=== PATIENT | male | born 1970 | race Caucasian/White ===

== ENCOUNTER 2021-02-02 10:07 | Day surgery (SDC) | payer BC ==
--- NOTE | 2021-02-02 09:39 | P.GSHP ---
History of Present Illness H&P Date: 02/02/21 CHIEF COMPLAINT: Colon screen HISTORY OF PRESENT ILLNESS: The patient is a 50-year-old male who presents for colon screen. Lower endoscopy was offered for further evaluation and management. PAST MEDICAL HISTORY: Please see list. PAST SURGICAL HISTORY: Please see list. MEDICATIONS: Please see list. ALLERGIES: Please see list. SOCIAL HISTORY: No illicit drug use FAMILY HISTORY: No reports of Crohn disease or ulcerative colitis. REVIEW OF ORGAN SYSTEMS: CONSTITUTIONAL: No reports of fevers or chills. PHYSICAL EXAM: VITAL SIGNS: Stable GENERAL: Well-developed pleasant in no acute distress. HEENT: No scleral icterus. Extraocular movements grossly intact. Moist buccal mucosa. NECK: Supple without lymphadenopathy. CHEST: Unlabored respirations. Equal bilateral excursions. CARDIOVASCULAR: Regular rate and rhythm. Distal 2+ pulses. ABDOMEN: Soft, nontender, nondistended. MUSCULOSKELETAL: No clubbing, cyanosis, or edema. ASSESSMENT: 1. Colon screen. PLAN: 1. Recommend proceeding with a lower endoscopy Past Medical History Past Medical History: Hyperlipidemia History of Any Multi-Drug Resistant Organisms: None Reported Additional Past Surgical History / Comment(s): RIGHT INDEX FINGER REPAIR Past Anesthesia/Blood Transfusion Reactions: No Reported Reaction Past Psychological History: No Psychological Hx Reported Smoking Status: Never smoker Past Alcohol Use History: Rare Past Drug Use History: None Reported Medications and Allergies Home Medications Medication Instructions Recorded Confirmed Type Aspirin [Adult Low Dose Aspirin EC] 81 mg PO HS 01/31/21 01/31/21 History Atorvastatin [Lipitor] 20 mg PO HS 01/31/21 01/31/21 History Cholecalciferol (Vitamin D3) 125 mcg PO HS 01/31/21 01/31/21 History [Vitamin D3 (5000 Iu)] Niacin 500 mg PO HS 01/31/21 01/31/21 History Allergies Allergy/AdvReac Type Severity Reaction Status Date / Time ibuprofen AdvReac Rash/Hives Verified 01/31/21 09:25 (AT HIGH DOSES)
[~2021-02-02 10:07] MED LIST: LACTATED RINGERS 1,000 ML IV SCH
[2021-02-02 11:29] VITALS: RESP 16; TEMP 98.6
[2021-02-02] MEDS ORDERED: PROPOFOL 10 MG/ML 20 ML VIAL IV ONE (11:52)
--- NOTE | 2021-02-02 12:15 | P.HPADDEND ---
H&P Addendum H&P Addendum Date: 02/02/21 Patient reports past history of colon polyps including history of irritable bowel syndrome.
--- NOTE | 2021-02-02 12:20 | P.PCN ---
Date of Procedure: 02/02/21 Description of Procedure: PREOPERATIVE DIAGNOSIS: Colonoscopy screening Personal history of colon polyps History of bowel syndrome irritable POSTOPERATIVE DIAGNOSIS: Pandiverticulosis with sigmoid stricture Ascending colon polyp OPERATION: Colonoscopy to the ileocecal valve and appendiceal orifice, cecum Colonoscopy with cold forceps biopsy SURGEON: Domenica Lomax MD. ANESTHESIA: MAC. INDICATIONS: The patient is an 50-year-old male who presents personal history of colon polyps. Last colonoscopy 10 years ago. Benefits and risks were described and informed consent was obtained. DESCRIPTION OF PROCEDURE: The patient had undergone Sutab prep. The patient had been brought into the operating room and laid in the left lateral decubitus position. After adequate intravenous sedation, the rectum was examined with 2% lidocaine jelly. The prostate was unremarkable. No external hemorrhoids were encountered. The rectal tone was within normal limits. No lesions were palpated in the rectal vault. An Olympus colonoscope was advanced until the cecum, ileocecal valve and appendiceal orifice were clearly viewed. The prep was good. Sigmoid diverticulosis with stricture was encountered. Colonic polyps were found and removed. No evidence of focal colitis was found. Retroflexion of the scope demonstrated grade 2 internal hemorrhoids without active bleeding or inflammation. The colon was desufflated. The patient had tolerated the procedure well. Withdrawal time was over 6 minutes. FINDINGS: Aronchick preparation quality scale 2 (1-5) Internal hemorrhoids, grade 1 No external hemorrhoids No arteriovenous malformations. Sigmoid diverticulosis with pandiverticulosis Removal of 1 polyp: - Cold forceps biopsy at ascending colon, 4 mm polyp tubulovillous No focal colitis. RECOMMENDATIONS: Repeat colonoscopy 3 years, 2023 Plan - Discharge Summary Discharge Rx Participant: No New Discharge Prescriptions: Continue Niacin 500 mg PO HS Cholecalciferol (Vitamin D3) [Vitamin D3 (5000 Iu)] 125 mcg PO HS Atorvastatin [Lipitor] 20 mg PO HS Aspirin [Adult Low Dose Aspirin EC] 81 mg PO HS Discharge Medication List Aspirin [Adult Low Dose Aspirin EC] 81 mg PO HS 01/31/21 [History] Atorvastatin [Lipitor] 20 mg PO HS 01/31/21 [History] Cholecalciferol (Vitamin D3) [Vitamin D3 (5000 Iu)] 125 mcg PO HS 01/31/21 [History] Niacin 500 mg PO HS 01/31/21 [History] Follow up Appointment(s)/Referral(s): Domenica Lomax MD [STAFF PHYSICIAN] - 02/10/21 Patient Instructions/Handouts: Diverticulosis (ED), Colorectal Polyps (GEN), D iverticulosis Diet (GEN) Activity/Diet/Wound Care/Special Instructions: Repeat colonoscopy in 5 years, 2022 Discharge Disposition: HOME SELF-CARE
[2021-02-02 12:37] VITALS: BP 115/78; PULSE 74
== END 2021-02-02 12:56 | disposition home or self-care (01) ==
LOC: ORWHC2ENDO 10:07
PROVIDERS: ATTEND Surgery Plastic and Reconstructive Surgery
DX: Z12.11 Encounter for screening for malignant neoplasm of colon (principal); D12.2 Benign neoplasm of ascending colon; Z86.010 Personal history of colon polyps; K58.9 Irritable bowel syndrome, unspecified; K56.699 Other intestinal obstruction unspecified as to partial versus complete obstruction; K57.30 Diverticulosis of large intestine without perforation or abscess without bleeding; K64.1 Second degree hemorrhoids; E78.5 Hyperlipidemia, unspecified; Z98.890 Other specified postprocedural states; Z79.82 Long term (current) use of aspirin; Z79.899 Other long term (current) drug therapy; Z88.6 Allergy status to analgesic agent
CPT/HCPCS: 88305; 45380; J2704

== ENCOUNTER → 2021-02-15 | Outpatient (CLI) | payer BC ==
--- NOTE | 2021-02-15 14:25 | MR ---
EXAMINATION TYPE: MR lumbar spine wo con DATE OF EXAM: 02/15/2021 COMPARISON: NONE HISTORY: Pain, radiculopathy TECHNIQUE: T1 and T2 axial and sagittal images of the lumbar spine are submitted. FINDINGS: There is no abnormal signal seen within the visualized spinal cord or paraspinal soft tissu es. At L1-2 there is no degenerative disc disease, disc herniation, or canal stenosis. No foraminal encro achment. At L2-3 there is loss of disc signal and there is broad-based central disc protrusion slightly greate r paracentrally to the right. There is mild to moderate effacement of thecal sac. Neural foramina pat ent. At L3-4 there is degenerative disc disease with annular tear and broad-based disc protrusion and mode rate effacement of thecal sac. Hypertrophy of the ligamentum flavum and facets result in borderline c anal stenosis and mild bilateral foraminal encroachment. Vertebral body hemangioma L4 incidentally no nessa. At L4-5 there is advanced facet arthropathy with ligamentum flavum hypertrophy and broad-based disc b ulging. There is moderate effacement of thecal sac and borderline canal stenosis with mild bilateral foraminal encroachment. Degenerative disc disease noted. At L5-S1 there is disc desiccation with facet arthropathy. No foraminal encroachment, disc herniation or canal stenosis. IMPRESSION: 1. Multilevel degenerative disc disease with multilevel facet arthropathy. Disc bulging L3-4 and L4-5 with hypertrophic changes results in borderline canal stenosis and mild bilateral foraminal encroach ment. 2. There is a central and right paracentral disc protrusion or small herniation L-2-L3 with mild effa cement of the thecal sac. No foraminal encroachment.
== END | disposition home or self-care (01) ==
LOC: RADMRIMAIN 12:52
PROVIDERS: ATTEND Nurse Practitioner
DX: M51.16 Intervertebral disc disorders with radiculopathy, lumbar region (principal); M47.26 Other spondylosis with radiculopathy, lumbar region
CPT/HCPCS: 72148

== ENCOUNTER → 2024-03-11 | Outpatient (CLI) | payer BC ==
--- NOTE | 2024-03-11 12:59 | XR ---
EXAMINATION TYPE: XR shoulder complete RT DATE OF EXAM: 03/11/2024 Comparison: None Clinical History: 53-year-old male M24.811 R shoulder joint displacement Findings: AC joint appears congruent and intact. Subacromial space is preserved some vague irregularity at the greater tuberosity on the AP external rotation view. No other acute fracture, subluxation, dislocatio n seen. Impression: Some vague lucency at the greater tuberosity may be projectional. If there is a trauma history and co ncern for subtle nondisplaced fracture, consider CT or MRI.
[2024-03-11 15:17] LABS: Basophils # (A) 0.06 X 10*3/uL (0.00-0.10); Eosinophils # (A) 0.13 X 10*3/uL (0.04-0.35); Eosinophils % (A) 2.1 %; HCT 46.8 % (39.6-50.0); HGB 14.4 g/dL (13.0-17.0); Lymphocytes # (A) 1.84 X 10*3/uL (0.90-5.00); Lymphocytes % (A) 29.6 %; MCH 27.9 pg (27.0-32.0); MCHC 30.8 g/dL (32.0-37.0); MCV 90.5 FL (80.0-97.0); Mean Platelet Volume 10.5 FL (9.5-12.2); Monocytes % (A) 8.1 %; NRBC Per 100 WBC 0 X 10*3/uL (0.00-0.01); Neutrophils # (A) 3.67 X 10*3/uL (1.80-7.70); Platelet Count 252 X 10*3/uL (140-440); RBC 5.17 X 10*6/uL (4.40-5.60); RDW 12.6 % (11.5-14.5); WBC 6.21 X 10*3/uL (4.50-10.00)
[2024-03-11 15:38] LABS: ALT 17 U/L (10-49); AST 19 U/L (14-35); Albumin 4.4 g/dL (3.8-4.9); Albumin/Globulin Ratio 1.52 Ratio (1.60-3.17); Alkaline Phosphatase 79 U/L (41-126); Blood Urea Nitrogen 12.2 mg/dL (9.0-27.0); Calcium 9.7 mg/dL (8.7-10.3); Carbon Dioxide 25.4 mmol/L (21.6-31.8); Chloride 105 mmol/L (96-109); Chol/HDL Ratio 4.31 Ratio; Globulin 2.9 g/dL (1.6-3.3); Glucose 107 mg/dL (70-110); LDL Cholesterol,Calculated 114.7 mg/dL (0.0-131.0); Potassium 4.6 mmol/L (3.5-5.5); Sodium 141 mmol/L (135-145); Total Bilirubin 0.5 mg/dL (0.3-1.2); Total Protein 7.3 g/dL (6.2-8.2)
== END | disposition home or self-care (01) ==
LOC: RADXRMAIN 07:49
PROVIDERS: ATTEND Family Medicine
DX: Z12.5 Encounter for screening for malignant neoplasm of prostate (principal); M24.811 Other specific joint derangements of right shoulder, not elsewhere classified; E78.5 Hyperlipidemia, unspecified
CPT/HCPCS: 80053; 80061; 83036; 84153; 84443; 85025

== ENCOUNTER → 2024-04-04 | Outpatient (CLI) | payer BC ==
--- NOTE | 2024-04-07 01:06 | MR ---
EXAMINATION TYPE: MR shoulder RT wo con DATE OF EXAM: 04/04/2024 COMPARISON: Shoulder x-ray March 11, 2024 HISTORY: Right shoulder pain for 6 weeks due to injury with ladder falling over TECHNIQUE: Multiplanar, multisequence imaging of the right shoulder is performed without contrast. FINDINGS: Rotator Cuff: Some increased signal in the distal supraspinatus tendon. Infraspinatus tendon is intac t. Subscapularis tendon is intact. Rotator cuff muscle bulk is preserved. Acromioclavicular Joint: No significant spurring or narrowing. Glenohumeral Joint: Small to moderate size joint effusion. No significant spurring. Labrum: The labrum appears grossly intact given limitation of non-arthrogram study. Biceps Tendon: The long head of biceps is in normal location within bicipital groove. Increased linea r signal in the biceps tendon intracapsular portion sagittal images 18 through 22. Bone marrow signal: Irregular linear signal through the anterior superior lateral aspect of the humer al head involving greater tuberosity correlates with most recent x-ray. Slight step off is noted on c oronal images. There is marked heterogeneous increased T2 signal throughout the nearly entire entire humeral head extending into the humeral neck. Other: No additional significant abnormality is appreciated. IMPRESSION: 1. Acute comminuted minimally displaced fracture through the anterolateral aspect of the humeral head including level of the greater tuberosity as suspected on recent x-ray. There is associated abnormal bone marrow edema throughout the majority of the humeral head. 2. Some tendinosis/partial tearing of the distal supraspinatus tendon. 3. Some tendinosis/partial tearing of the intracapsular portion of the long head of biceps tendon.
== END | disposition home or self-care (01) ==
LOC: RADMRIMAIN 16:41
PROVIDERS: ATTEND Family Medicine
DX: S42.90XA Fracture of unspecified shoulder girdle, part unspecified, initial encounter for closed fracture (principal); S46.011A Strain of muscle(s) and tendon(s) of the rotator cuff of right shoulder, initial encounter; M67.813 Other specified disorders of tendon, right shoulder; W19.XXXA Unspecified fall, initial encounter